=== PATIENT | female | born 1970 | race Caucasian/White ===

== ENCOUNTER 2023-07-15 08:59 | Emergency (ER) | payer BC ==
[~2023-07-15] VITALS: Ht 160 cm; Wt 91.4 kg
[2023-07-15] MEDS ORDERED: MEDR4PAK PO (11:22)
[2023-07-15] MEDS ORDERED: VALI5TAB PO (11:22)
[2023-07-15] MEDS ORDERED: LIDO5DIS41 TOP (11:22)
[2023-07-15] MEDS: LIDOCAINE 5% (LIDODERM) PATCH TD ONE (11:24)
[2023-07-15] MEDS: dexAMETHasone 4 MG TAB PO ONE (11:24)
[2023-07-15] MEDS: ACETAMINOPHEN 500 MG TAB PO ONE (11:24)
[2023-07-15] MEDS: diazePAM 5MG TABLET PO ONE (11:24)
[2023-07-15 11:31] VITALS: BP 164/98; TEMP 98.8; O2SAT 100
== END 2023-07-15 12:21 | disposition home or self-care (01) ==
LOC: M ED 08:59
DX: M54.10 Radiculopathy, site unspecified (principal); Z98.84 Bariatric surgery status; Z88.8 Allergy status to other drugs, medicaments and biological substances